=== PATIENT | female | born 1960 | race Caucasian/White ===

== ENCOUNTER → 2016-11-22 | Outpatient (CLI) | payer OTHER ==
[2016-11-22 09:31] LABS: EKG EKG PERFORMED
[2016-11-22 10:33] LABS: Basophils % (A) 1 %; CH 31.6; CHCM 35.2; Eosinophils # (A) 0.2 k/uL (0-0.7); Eosinophils % (A) 3 %; HCT 43.9 % (34.0-46.0); HDW 2.92; HGB 14.8 gm/dL (11.4-16.0); Luc # (Auto) 0.11; Luc % (Auto) 2; Lymphocytes # (A) 1.9 k/uL (1.0-4.8); Lymphocytes % (A) 34 %; MCH 30.4 pg (25.0-35.0); MCHC 33.6 g/dL (31.0-37.0); MCV 90.4 fL (80.0-100.0); Mean Platelet Volume 7.7; Monocytes # (A) 0.3 k/uL (0-1.0); Monocytes % (A) 5 %; Neutrophils # (A) 3.2 k/uL (1.3-7.7); Neutrophils % (A) 56 %; RBC 4.86 m/uL (3.80-5.40); RDW 13.9 % (11.5-15.5); WBC 5.7 k/uL (3.8-10.6); WBC (Perox) 5.71
[2016-11-22 10:53] LABS: Anion Gap 10 mmol/L; Blood Urea Nitrogen 17 mg/dL (7-17); Carbon Dioxide 29 mmol/L (22-30); Chloride 105 mmol/L (98-107); Glucose 107 mg/dL (74-99); Non-African American GFR(MDRD) >60 (>60 ml/min/1.73 sqM); Potassium 3.4 mmol/L (3.5-5.1); Sodium 144 mmol/L (137-145)
== END | disposition home or self-care (01) ==
LOC: LABPAT 08:49
PROVIDERS: ATTEND Obstetrics & Gynecology
DX: Z01.818 Encounter for other preprocedural examination (principal); I10 Essential (primary) hypertension; N81.10 Cystocele, unspecified; N81.2 Incomplete uterovaginal prolapse
CPT/HCPCS: 80051; 82565; 82947; 84520; 85025; 87077; 87086; 87186; 93005

== ENCOUNTER 2016-12-01 06:17 | Observation (INO) | payer OTHER ==
[2016-11-23 16:21] VITALS: BMI 20.3
--- NOTE | 2016-11-30 19:32 | HP ---
DATE OF ADMISSION: HISTORY: This is a 56-year-old 3, para 3 woman with symptomatic uterovaginal prolapse and incontinence. She complains of pelvic discomfort, a bulge in the vagina and incontinence. Her symptoms are accentuated by coughing, laughing and lifting. She was evaluated by Dr. Natanael De Los Santos who is recommending a mid urethral sling for her incontinence and she will have repair of her pelvic prolapse at the same time. ALLERGIES: CODEINE. MEDICATIONS: 1. Fluoxetine 20 mg daily. 2. Hydrochlorothiazide 25 mg daily. 3. Prempro 0.45/1.25 mg 1 p.o. daily. PAST MEDICAL HISTORY: Hypertension. PAST SURGICAL HISTORY: Cholecystectomy in 1979, wrist surgery in 2008. 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 No history of abnormal Pap smears. SOCIAL HISTORY: She is . Negative for tobacco, alcohol and drug use. FAMILY HISTORY: Significant for mother with breast cancer. REVIEW OF SYSTEMS: Positive for urinary incontinence and pelvic discomfort, otherwise negative for fevers, chills, weight gain, weight loss, nausea, vomiting, shortness of breath, chest pain, abdominal pain, rash or neurologic symptoms. PHYSICAL EXAMINATION: Blood pressure 110/70. Height 5 feet 7 inches, weight 173 pounds. In general, this is a pleasant female in no apparent distress. HEENT exam is unremarkable with no palpable lymphadenopathy or thyromegaly. The lungs are clear to auscultation bilaterally and the heart is regular rate and rhythm. The abdomen is soft and nontender with no rebound, no guarding and no flank pain. On pelvic examination, she has normal female external genitalia. On vaginal exam she has a grade 2 rectocele, grade 3 cystocele and grade 2 uterine prolapse. She has a hypermobile urethra. Rectal exam is within normal limits. Neurologically she is grossly intact. ASSESSMENT: This is a 56-year-old 3, para 3 woman with symptomatic pelvic prolapse incontinence. She has a grade 3 cystocele, grade 2 cervical uterine prolapse and grade 2 rectocele. She is scheduled to undergo total vaginal hysterectomy with anterior colporrhaphy and possible posterior colporrhaphy. Dr. De Los Santos will be performing a mid urethral sling procedure. This procedure, anticipated hospital course and recovery time have been reviewed with the patient in detail. Risks have also been reviewed. The risks include but are not limited to bleeding, transfusion, infection, laparotomy, damage to bowel, bladder, ureters and/or other pelvic or abdominal structures. There also risks in relation to the anesthesia as well as potential for DVT, PE, and/or . The patient understands these risks and agrees to proceed. She is scheduled for the above-named procedure on 12/01/2016.
[~2016-12-01 06:17] MED LIST: DEXAMETHASONE SOD PHOSPHATE 10 MG/ML 1 ML VIAL IV ONE; HYDROmorphone 1 MG/ML 1 ML SYRINGE IVP PRN; LEVOFLOXACIN 500MG-D5W PMX 500 MG in DEXTROSE/WATER 1 100ML.BAG IVPB ONE; LIDOCAINE 1% 20 ML VIAL (10MG/ML) FOR IV START INTRADERMA PRN; MIDAZOLAM 2 MG/2 ML VIAL IV PRN; ONDANSETRON 4 MG/2 ML VIAL IVP ONE; SCOPOLAMINE 1.5MG/72HR PATCH TRANSDERM ONE; ceFAZolin 2 GM in SODIUM CHLORIDE 0.9% 100 ML IVPB ONE
[2016-12-01] MEDS: LACTATED RINGERS 1,000 ML IV SCH ×2 (06:30→14:51)
[2016-12-01] MEDS ORDERED: VASOPRESSIN 20 UNIT/ML 1 ML VIAL SQ ONE ×2 (07:56→08:16)
[2016-12-01] MEDS ORDERED: NEOSTIGMINE 1 MG/ML 10 ML VIAL ONE (07:58)
[2016-12-01] MEDS ORDERED: MIDAZOLAM 2 MG/2 ML VIAL ONE (07:58)
[2016-12-01] MEDS ORDERED: fentaNYL (PF) 50 MCG/ML 2 ML AMP ONE (07:58)
[2016-12-01] MEDS ORDERED: LIDOCAINE 1% INJ 10MG/ML (20 ML MDV) ONE (07:58)
[2016-12-01] MEDS ORDERED: PROPOFOL 10 MG/ML 20 ML VIAL IV ONE (07:58)
[2016-12-01] MEDS ORDERED: ROCURONIUM BROMIDE 10 MG/ML 10 ML VIAL IV ONE (07:58)
[2016-12-01] MEDS ORDERED: ePHEDrine 50 MG/ML 1 ML AMP ONE (07:58)
[2016-12-01] MEDS ORDERED: GLYCOPYRROLATE 0.2 MG/ML 2 ML VIAL ONE (07:58)
[2016-12-01] MEDS ORDERED: SUCCINYLCHOLINE CHLORIDE 100 MG/5 ML SYR IV ONE (07:58)
[2016-12-01] MEDS ORDERED: BACITRACIN 500 UNIT/GM OINT 28.4 GM TUBE TOPICAL ONE (08:22)
[2016-12-01] MEDS ORDERED: GENTAMICIN 40 MG/ML 2 ML VIAL IRRIGATION ONE (09:11)
[2016-12-01] MEDS ORDERED: LACTATED RINGERS 1,000 ML IV ONE (09:35)
--- NOTE | 2016-12-01 09:51 | P.OP ---
Date of Procedure: 12/01/16 Preoperative Diagnosis: Third-degree cystocele, second-degree rectocele, second-degree uterine prolapse Urinary incontinence Postoperative Diagnosis: Same Procedure(s) Performed: Total vaginal hysterectomy and anterior colporrhaphy Implants: Anesthesia: MARYAodilia Surgeon: Juanis Turpin Adjustment Supervisor #1: Farzaneh Flores Estimated Blood Loss (ml): 100 IV fluids (ml): 700 Urine output (ml): 175 Pathology: other (Uterus) Condition: stable Disposition: PACU Indications for Procedure: Symptomatic pelvic prolapse and urinary incontinence Operative Findings: Second-degree cervical uterine prolapse, second-degree rectocele, third-degree cystocele Description of Procedure: After the patient and her family were met in the preoperative holding area and all questions were answered, she was taken to the operating room where anesthetic was administered without incident. She received a spinal anesthetic in the preoperative holding area. Appropriate timeout procedure was undertaken. She was then positioned, prepped and draped in the dorsal lithotomy position. The bladder was drained for approximately 100 mL of clear urine at the beginning of the procedure. Weighted speculum was placed in the vagina and the cervix was grasped with a single-tooth tenaculum. The vaginal mucosa was infused with dilute vasopressin solution circumferentially about the cervix. A circumferential incision was then made around the cervix in the vaginal mucosa. The vaginal mucosa was bluntly dissected away from the underlying cervical tissue anteriorly and posteriorly. The posterior peritoneum was identified and entered sharply. The peritoneum was tagged with a 2-0 Vicryl suture. The short weighted speculum was replaced with a long weighted speculum. The anterior vaginal Koza was further bluntly dissected away from the cervix and lower uterine segment. The uterosacral ligaments were clamped cut and suture ligated bilaterally. 2-0 Vicryl suture was utilized throughout unless otherwise indicated. The uterosacral pedicles were tagged. The bladder was further advanced anteriorly and the broad ligaments were clamped , cut and suture ligated bilaterally. The uterine vasculature was then clamped , cut and suture ligated bilaterally. The fundus of the uterus was noted to be well suspended. There was a small approximately 2 cm anterior fundal fibroid. The cornual pedicles were identified. The anterior peritoneum was entered sharply. The right cornual pedicle was then clamped and cut. It was doubly suture ligated. This freed exposure to the left cornea which was then clamped, cut and doubly suture ligated. Surgical sites were inspected. Bovie electrocautery was utilized along the vaginal cuff for hemostasis. The ovaries on the were not visualized in the surgical field. There are no gross pelvic pathology noted in the surgical field. The peritoneum was then closed in a pursestring fashion. The uterosacral ligaments were then reapproximated in the midline with the original tagged sutures. The vaginal cuff was then closed incorporating the uterosacral pedicles for suspension. This was done in an interrupted fashion. Attention was then turned to the anterior pair. The anterior portion of the vaginal cuff was left open and was delineated with Allis clamps. The anterior vaginal mucosa was then infused with dilute vasopressin solution. Metzenbaum scissors were utilized to undermine the anterior vaginal mucosa in the midline and this was incised in a vertical fashion. This was carried up to a level approximately 2 cm below the urethral meatus. The underlying vesicovaginal tissue was then bluntly from the vaginal mucosa. A Garner catheter was then placed. Clear urine was noted, approximately 25 mL's. The vesicovaginal fascia was then reapproximated in the midline using 2-0 Vicryl suture in an interrupted fashion with Loly plication stitches. This effectively reduced the cystocele. Excess vaginal mucosa was then trimmed. The inferior portion of the vaginal mucosa was then closed in a running fashion with 0 Vicryl suture. The case at this time was turned over to Dr. obrien in from urology to place the suburethral sling. At the conclusion of the sling placement I did finish closing the entire vaginal cuff to close over the surgical site. Packing was placed in the vagina. All counts reported to me as correct by the operating room staff.
[2016-12-01] MEDS ORDERED: SIMETHICONE 80 MG CHEWABLE PO PRN (11:38)
[2016-12-01] MEDS ORDERED: IBUPROFEN 600 MG TAB PO PRN (11:38)
[2016-12-01] MEDS ORDERED: METOCLOPRAMIDE 5 MG/ML 2 ML VIAL IVP PRN (11:38)
[2016-12-01] MEDS: KETOROLAC 30 MG/ML 1 ML VIAL IVP PRN (19:26)
[2016-12-01] MEDS: diphenhydrAMINE 50 MG/ML 1 ML VIAL IVP PRN (19:30)
--- NOTE | 2016-12-01 20:14 | OP ---
DATE OF SERVICE: 12/01/2016 SURGEON: JEFERSON MOHAMUD MD PREOPERATIVE DIAGNOSIS: Stress urinary incontinence. POSTOPERATIVE DIAGNOSIS: Stress urinary incontinence. OPERATION: Obtryx mid-urethral sling and cystoscopy. ANESTHESIA: General. INDICATIONS: The patient is a 56-year-old female with a history of urine leakage with activity. Patient has noted increasing leakage over the last year. On examination, patient has a hypermobile bladder neck and a moderate-sized cystocele. Patient's symptoms are consistent with stress urinary incontinence. She has seen Dr. Turpin, who plans vaginal hysterectomy and anterior repair for her pelvic prolapse. Patient will undergo a [employer] Obtryx mid-urethral sling under the same anesthetic. PROCEDURE: The patient was taken to the operating suite, where adequate general anesthesia via orotracheal intubation was instituted. The patient was placed in the dorsal lithotomy position. Pneumatic compression stockings were applied to the patient's lower legs. A Betadine vaginal douche was performed. The perineum was prepped with Betadine soap, painted with Betadine solution, and draped in sterile fashion. Dr. Turpin initially performed a vaginal hysterectomy and anterior colporrhaphy. The midline vaginal incision was then extended anteriorly to the mid urethra. The vaginal mucosa was dissected away from the underlying urethral and periurethral tissue laterally so that a finger could be passed through the vaginal incision up to the region of the obturator foramen on each side. One-centimeter skin incisions were then made in the right and left groins at a level adjacent to the clitoris. A curved introducer was then passed through the left groin incision, through the obturator foramen and then out lateral to the mid urethra with a finger placed through the vaginal incision. An identical procedure was then performed on the right side. The sling was attached to the introducers on each side and pulled up into the groin regions. Patient's Garner catheter was removed. Cystoscopy was performed using the 17 Swedish sheath and 70-degree lens. Both ureteral orifices were of normal location and configuration and effluxed clear urine. The bladder was free of tumor, foreign body and perforation. The urethra was unremarkable. The cystoscope was withdrawn and the Garner catheter was reinserted. A Loly clamp was then placed between the graft and the mid urethra to act as a spacer and the graft was pulled up to the clamp. The plastic sheathing was removed. The position of the graft was inspected to ensure no upward traction. The midline vaginal mucosa was then closed using running 2-0 Vicryl placed in a locked fashion by Dr. Turpin. Bacitracin-impregnated gauze was then placed into the vagina for packing. The groin incisions were then closed using Mastisol and Steri-Strips. The patient tolerated the procedure well and left the operating room awake and in satisfactory condition. Blood loss during the entire procedure was less than 100 mL. Final sponge, needle and instrument counts were reported as correct. The patient's catheter will be removed in the morning and she will be discharged later in the day, provided that her post-void residual is low. POLLY
[2016-12-01] MEDS: SENNOSIDES-DOCUSATE SODIUM 1 EACH TAB PO SCH (20:53)
[2016-12-02] MEDS: KETOROLAC 30 MG/ML 1 ML VIAL IVP PRN ×2 (02:27→08:22)
[2016-12-02] MEDS: diphenhydrAMINE 50 MG/ML 1 ML VIAL IVP PRN (02:29)
--- NOTE | 2016-12-02 08:20 | P.DS ---
Providers Date of admission: 12/02/16 04:03 Expected date of discharge: 12/02/16 Attending physician: Juanis Turpin Primary care physician: Stated None - Discharge Diagnosis(es) (1) Cystocele or rectocele with uterine prolapse Current Visit: Yes Status: Acute (2) Incontinence of urine Current Visit: Yes Status: Acute Hospital Course: This is a 56 year old woman who is admitted for surgical repair of symptomatic pelvic prolapse including third-degree cystocele, second-degree cervical uterine prolapse and second-degree rectocele. She was admitted on 12/01/2016 and underwent an uncomplicated total vaginal hysterectomy with anterior colporrhaphy and mid urethral sling placement. Please see the operative report for details. Procedure was done under spinal plus general anesthetic. Her postoperative course was unremarkable. By the evening of postoperative day 0 she was ambulating without difficulty and tolerating a general diet. By the morning of postoperative day #1 her vaginal packing and Garner catheter removed. She had no active vaginal bleeding. She was able to void spontaneously with minimal postvoid residuals. Her pain was well-controlled with oral pain medications and she was tolerating a general diet. Postoperative blood counts are pending at the time of this dictation. Her physical exam is benign. Her abdomen is soft with no rebound, no guarding, and no flank pain. She has minimal vaginal bleeding on pelvic exam. She was therefore discharged home on postoperative day #1 pending the evaluation by the urology team and normal postop blood counts. Procedures: Total vaginal hysterectomy with anterior colporrhaphy and mid urethral sling placement. Patient Condition at Discharge: Good Plan - Discharge Summary New Discharge Prescriptions: New Ibuprofen 800 mg PO Q8HR PRN #30 tablet PRN Reason: Pain Sennosides-Docusate Sodium [Senokot-S] 2 each PO BID tab No Action Hydrochlorothiazide [Hydrodiuril] 25 mg PO DAILY Cetirizine HCl [Zyrtec] 10 mg PO DAILY Discharge Medication List Cetirizine HCl [Zyrtec] 10 mg PO DAILY 11/23/16 [History] Hydrochlorothiazide [Hydrodiuril] 25 mg PO DAILY 11/23/16 [History] Ibuprofen 800 mg PO Q8HR PRN #30 tablet 12/02/16 [Rx] Sennosides-Docusate Sodium [Senokot-S] 2 each PO BID tab 12/02/16 [Rx] Follow up Appointment(s)/Referral(s): Juanis Turpin MD [STAFF PHYSICIAN] - 2 Weeks Natanael De Los Santos MD [STAFF PHYSICIAN] - 3 Days Activity/Diet/Wound Care/Special Instructions: Call the office with any concerning signs or symptoms including fever greater than 100.5, heavy vaginal bleeding, foul vaginal discharge, severe abdominal pain, difficulty or inability to urinate, redness or swelling of the lower extremities. No heavy lifting greater than 10 pounds, no driving for 2 weeks. Nothing in the vagina, no intercourse for 6 weeks. Discharge Disposition: HOME SELF-CARE
[2016-12-02] MEDS: SENNOSIDES-DOCUSATE SODIUM 1 EACH TAB PO SCH (08:32)
[2016-12-02] MEDS ORDERED: HYDROCHLOROTHIAZIDE 25 MG TAB PO SCH (09:00)
[2016-12-02] MEDS ORDERED: ACETAMINOPHEN TAB 325 MG TAB PO PRN (09:54)
--- NOTE | 2016-12-02 10:24 | P.PN ---
Progress Note - Text Date:12/02 Time:956am Patient is status post vaginal hystrectomy. Patient seen this morning with VAS score of 0. c/o of pruritus and treated with benadryl, no c/o nausea/vomiting, comfortable and doing well.
[2016-12-02 10:44] LABS: Basophils % (A) 0 %; CH 31.4; CHCM 35.3; Eosinophils % (A) 0 %; HCT 36.4 % (34.0-46.0); HDW 2.78; HGB 12.7 gm/dL (11.4-16.0); Luc # (Auto) 0.19; Luc % (Auto) 2; Lymphocytes # (A) 2.3 k/uL (1.0-4.8); Lymphocytes % (A) 18 %; MCH 31.2 pg (25.0-35.0); MCHC 34.8 g/dL (31.0-37.0); MCV 89.6 fL (80.0-100.0); Mean Platelet Volume 7.8; Monocytes # (A) 0.6 k/uL (0-1.0); Monocytes % (A) 5 %; Neutrophils # (A) 9.2 k/uL (1.3-7.7); Neutrophils % (A) 75 %; RBC 4.06 m/uL (3.80-5.40); RDW 13.5 % (11.5-15.5); WBC 12.3 k/uL (3.8-10.6); WBC (Perox) 13.36
[2016-12-02 12:05] VITALS: BP 115/67; PULSE 70; RESP 16; TEMP 97.5
--- NOTE | 2016-12-02 12:17 | P.PN ---
Progress Note - Text PID #1, s/p Obtryx sling. The Garner catheter was removed this morning, and she is emptying her bladder well. She states that she voided without difficulty. The incisions are dry and intact. She is afebrile with stable vital signs. She is to be discharged home today and follow up with Dr. De Los Santos in the upcoming week.
== END 2016-12-02 12:30 | disposition home or self-care (01) ==
LOC: OR 06:17 → 6PED 09:50 → OR 12-02 04:02 → 6PED 12-02 04:03
PROVIDERS: ADMIT Obstetrics & Gynecology; ATTEND Obstetrics & Gynecology
DX: N81.2 Incomplete uterovaginal prolapse (principal); N39.3 Stress incontinence (female) (male); R05 Cough; I10 Essential (primary) hypertension; Z90.49 Acquired absence of other specified parts of digestive tract; Z79.899 Other long term (current) drug therapy; Z80.3 Family history of malignant neoplasm of breast
CPT/HCPCS: 86900; 86901; 84132; 85025; 86850; 88342; 88307; 58260; 57240; G0378; C1771; J2250; J1200 ×2; J1580; J1100; J2710; J2405; J0694; J2001; J3010; J1885 ×2; J0330; J2704

== ENCOUNTER → 2017-01-26 | Outpatient (CLI) | payer OTHER ==
--- NOTE | 2017-01-30 09:03 | MM ---
Reason for exam: screening (asymptomatic). Last mammogram was performed 1 year and 5 months ago. History: Patient is postmenopausal. Family history of breast cancer in mother. Took hormonal contraceptives beginning at age 48. Taking estrogen. Taking progesterone. Physical Findings: A clinical breast exam by your physician is recommended on an annual basis and results should be correlated with mammographic findings. MG 3D Screening Mammo W/Cad Bilateral CC and MLO view(s) were taken. Prior study comparison: September 03, 2015, bilateral MG 3d screening mammo w/cad. October 06, 2009, right breast mammogram dig work up. Finding: Architectural distortion in the upper outer quadrant of the right breast. ASSESSMENT: Incomplete: need additional imaging evaluation, BI-RAD 0 RECOMMENDATION: Special view mammogram of the right breast. If lesion persists on supplemental views, image directed ultrasound is recommended. [facility] will attempt to contact patient to return for supplemental views and ultrasound if indicated.
== END | disposition home or self-care (01) ==
LOC: RADMAMWWP 07:46
PROVIDERS: ATTEND Obstetrics & Gynecology
DX: Z12.31 Encounter for screening mammogram for malignant neoplasm of breast (principal)
CPT/HCPCS: 77063; G0202

== ENCOUNTER → 2017-02-05 | Outpatient (CLI) | payer OTHER ==
--- NOTE | 2017-02-05 08:34 | MM ---
Reason for exam: additional evaluation requested from abnormal screening. Last mammogram was performed less than 1 month ago. History: Patient is postmenopausal. Family history of breast cancer in mother. Took hormonal contraceptives beginning at age 48. Taking estrogen. Taking progesterone. Physical Findings: Nurse did not find any significant physical abnormalities on exam. MG 3D Work Up W/Cad RT Spot compression CC, spot compression MLO, spot compression XCCL, and LM view(s) were taken of the right breast. Prior study comparison: January 26, 2017, bilateral MG 3d screening mammo w/cad. September 03, 2015, bilateral MG 3d screening mammo w/cad. The breast tissue is heterogeneously dense. This may lower the sensitivity of mammography. The previously described abnormality does not persist on additional views. These results were verbally communicated with the patient and result sheet given to the patient on 02/05/17. ASSESSMENT: Negative, BI-RAD 1 RECOMMENDATION: Return to routine screening mammogram schedule for both breasts.
== END | disposition home or self-care (01) ==
LOC: RADMAMWWP 07:31
PROVIDERS: ATTEND Obstetrics & Gynecology
DX: R92.8 Other abnormal and inconclusive findings on diagnostic imaging of breast (principal)
CPT/HCPCS: G0206; G0279

== ENCOUNTER 2017-08-07 07:57 | Emergency (ER) | payer OTHER ==
[2017-08-07 08:03] VITALS: BP 143/79; PULSE 70; RESP 18; TEMP 97
--- NOTE | 2017-08-07 08:37 | ED ---
General Adult HPI - General Chief complaint: Fall Stated complaint: Fell/rib pain Time Seen by Provider: 08/07/17 08:14 Source: patient, RN notes reviewed Mode of arrival: ambulatory Limitations: no limitations - History of Present Illness Initial comments: 56 yo female presents to the ER with cc of right sided rib pain after a slip and fall this morning. Patient states that she slipped on some ice and landed onto her right side of her ribs. Patient states she has pain to touch she has pain to deep breath. Patient denies any abdominal pain. She states nothing else was injured. She denied her head. There is no lightheadedness or dizziness no chest pain prior to the fall. Patient is otherwise feeling well. Patient denies any recent fever, chills, shortness of breath, back pain, abdominal pain, nausea vomiting, numbness or tingling, dysuria or hematuria, constipation or diarrhea, headaches or visual changes, or any other current symptoms. - Related Data Home Medications Medication Instructions Recorded Confirmed Hydrochlorothiazide [Hydrodiuril] 25 mg PO DAILY 11/23/16 08/07/17 Estradiol [Estrace] 1.5 mg PO HS 08/07/17 08/07/17 Joint Health 1 tab PO DAILY 08/07/17 08/07/17 Progesterone, Micronized 100 mg PO HS 08/07/17 08/07/17 [Progesterone] Previous Rx's Medication Instructions Recorded Hydrocodone/Acetaminophen [[place] 1 each PO Q6HR PRN #10 tab 08/07/17 5-325] Ibuprofen [Motrin] 600 mg PO Q6HR PRN #20 tab 08/07/17 Allergies Allergy/AdvReac Type Severity Reaction Status Date / Time codeine AdvReac Abdominal Verified 08/07/17 08:19 Pain Review of Systems ROS Statement: Those systems with pertinent positive or pertinent negative responses have been documented in the HPI. ROS Other: All systems not noted in ROS Statement are negative. Past Medical History Past Medical History: Hypertension History of Any Multi-Drug Resistant Organisms: None Reported Past Surgical History: Hysterectomy, Orthopedic Surgery Additional Past Surgical History / Comment(s): left wrist surgery Past Psychological History: No Psychological Hx Reported Smoking Status: Never smoker Past Alcohol Use History: None Reported Past Drug Use History: None Reported General Exam Limitations: no limitations General appearance: alert, in no apparent distress ENT exam: Present: normal exam, mucous membranes moist Neck exam: Present: normal inspection. Absent: tenderness, meningismus, lymphadenopathy Respiratory exam: Present: normal lung sounds bilaterally, chest wall tenderness (Right lateral). Absent: respiratory distress, wheezes, rales, rhonchi, stridor Cardiovascular Exam: Present: regular rate, normal rhythm, normal heart sounds. Absent: systolic murmur, diastolic murmur, rubs, gallop, clicks GI/Abdominal exam: Present: soft, normal bowel sounds. Absent: distended, tenderness, guarding, rebound, rigid Neurological exam: Present: alert, oriented X3 Psychiatric exam: Present: normal affect, normal mood Skin exam: Present: warm, dry, intact, normal color. Absent: rash Course Vital Signs 08/07/17 08:00 Temperature 97.0 F L Pulse Rate 70 Respiratory 18 Rate Blood Pressure 143/79 O2 Sat by Pulse 99 Oximetry Medical Decision Making - Medical Decision Making 56-year-old female presents emergency department chief complaint of right-sided rib pain. At this time x-rays reviewed that does not show any acute fracture. At this time we discussed we will give her pain medication. We discussed continued care of the ribs for a rib contusion. We did discuss repeat x-ray in one week if symptoms persist. We did discuss return parameters and follow-up and all questions. The patient and family stated they understood and they are in agreement with this plan. All questions have been answered. They will be discharged. - Radiology Data Radiology results: report reviewed, image reviewed Disposition Clinical Impression: Fall, Contusion of rib on right side Disposition: HOME SELF-CARE Condition: Stable Instructions: Rib Contusion (ED) Additional Instructions: Please use medication as discussed. Please follow up with family doctor if symptoms have not improved over the next two days. Please return to the emergency room if your symptoms increase or worsen or for any other concerns. Prescriptions: Hydrocodone/Acetaminophen [[place] 5-325] 1 each PO Q6HR PRN #10 tab PRN Reason: Pain Ibuprofen [Motrin] 600 mg PO Q6HR PRN #20 tab PRN Reason: Pain Referrals: Pedro Pablo Marcial DO [Primary Care Provider] - 1-2 days Time of Disposition: 09:08
--- NOTE | 2017-08-07 09:03 | XR ---
EXAMINATION TYPE: XR ribs RT w pa chest xray DATE OF EXAM: 08/07/2017 COMPARISON: NONE HISTORY: Pain TECHNIQUE: Single view of the chest 4 views of the ribs are submitted. FINDINGS: The lungs are clear. No Evidence for pneumothorax. No evidence for focal contusion. Medi astinal structures are midline. Evaluation of the ribs fails to demonstrate evidence for displaced r ib fracture or secondary sign of rib fracture. IMPRESSION: Negative study
== END 2017-08-07 09:22 | disposition home or self-care (01) ==
LOC: EC 07:57
DX: S20.211A Contusion of right front wall of thorax, initial encounter (principal); I10 Essential (primary) hypertension; Z88.5 Allergy status to narcotic agent; Z79.890 Hormone replacement therapy; Z79.899 Other long term (current) drug therapy; W00.0XXA Fall on same level due to ice and snow, initial encounter
CPT/HCPCS: 99283

== ENCOUNTER → 2018-08-30 | Outpatient (CLI) | payer OTHER ==
--- NOTE | 2018-08-30 14:40 | XR ---
EXAMINATION TYPE: XR Hip RT and AP Pelvis DATE OF EXAM: 08/30/2018 COMPARISON: NONE HISTORY: Pain TECHNIQUE: A single AP view of the pelvis is obtained. Two views of the right hip are obtained. FINDINGS: There is hypertrophic change lower lumbar spine. Hypertrophic change of the acetabulum rolando aterally with arthropathy. No acute fracture. Sclerotic density involving the femoral neck likely rel ated to bone island. IMPRESSION: 1. 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
== END ==
LOC: RADXRMAIN 13:57
PROVIDERS: ATTEND Family Medicine
DX: S30.0XXA Contusion of lower back and pelvis, initial encounter (principal); M16.11 Unilateral primary osteoarthritis, right hip
CPT/HCPCS: 73502

== ENCOUNTER 2018-12-21 14:14 | Emergency (ER) | payer OTHER ==
--- NOTE | 2018-12-21 14:56 | ED ---
Extremity Problem HPI - General Chief complaint: Extremity Problem,Nontraumatic Stated complaint: Left Foot Swelling Time Seen by Provider: 12/21/18 14:28 Source: patient Mode of arrival: ambulatory Limitations: no limitations - History of Present Illness Initial comments: Patient is a 58-year-old female presenting to the ER with complaints of lower left leg and ankle swelling on and off 3 days. Patient states she works on her feet most of the day and when she came home she had significant swelling of her left lower extremity. Patient denies pain in her left ankle and foot. Patient states she does have mild pain when walking on the front of her tibia. Patient denies any kind of injury or trauma to her left leg. Patient denies recent travel, smoking, control use, history of blood clots. Patient states he went to urgent care today for this issue and they sent her to the ER to get an ultrasound. Patient has no other complaints today. Patient states past medical history: Hypertension and depression. Patient has been on medication for these for over 3 years, no recent changes. - Related Data Home Medications Medication Instructions Recorded Confirmed Hydrochlorothiazide [Hydrodiuril] 25 mg PO DAILY 11/23/16 08/07/17 Estradiol [Estrace] 1.5 mg PO HS 08/07/17 08/07/17 Joint Health 1 tab PO DAILY 08/07/17 08/07/17 Progesterone, Micronized 100 mg PO HS 08/07/17 08/07/17 [Progesterone] Previous Rx's Medication Instructions Recorded Hydrocodone/Acetaminophen [Energy 1 each PO Q6HR PRN #10 tab 08/07/17 5-325] Ibuprofen [Motrin] 600 mg PO Q6HR PRN #20 tab 08/07/17 Allergies Allergy/AdvReac Type Severity Reaction Status Date / Time codeine AdvReac Abdominal Verified 12/21/18 14:27 Pain Review of Systems ROS Statement: Those systems with pertinent positive or pertinent negative responses have been documented in the HPI. ROS Other: All systems not noted in ROS Statement are negative. Past Medical History Past Medical History: Hypertension History of Any Multi-Drug Resistant Organisms: None Reported Past Surgical History: Hysterectomy, Orthopedic Surgery Additional Past Surgical History / Comment(s): left wrist surgery Past Psychological History: No Psychological Hx Reported Smoking Status: Never smoker Past Alcohol Use History: None Reported Past Drug Use History: None Reported General Exam - General Exam Comments Initial Comments: GENERAL: Well-appearing, well-nourished and in no acute distress. HEAD: Atraumatic, normocephalic. EYES: Pupils equal round and reactive to light, extraocular movements intact, sclera anicteric, conjunctiva are normal. ENT: TMs normal, nares patent, oropharynx clear without exudates. Moist mucous membranes. NECK: Normal range of motion, supple without lymphadenopathy or JVD. LUNGS: Breath sounds clear to auscultation bilaterally and equal. No wheezes rales or rhonchi. HEART: Regular rate and rhythm without murmurs, rubs or gallops. ABDOMEN: Soft, nontender, normoactive bowel sounds. No guarding, no rebound. No masses appreciated. : Deferred EXTREMITIES: No tenderness to palpation of the left lower leg, ankle, foot. No pain with calf palpation and compression. No erythema. Mild swelling present on the lateral malleolus area. NEUROLOGICAL: Cranial nerves II through XII grossly intact. Normal speech, normal gait. PSYCH: Normal mood, normal affect. SKIN: Warm, Dry, normal turgor, no rashes or lesions noted. Limitations: no limitations Course Vital Signs 12/21/18 12/21/18 12/21/18 14:25 15:17 17:06 Temperature 98.5 F 98 F Pulse Rate 62 98 66 Respiratory 18 16 16 Rate Blood Pressure 164/79 153/85 127/81 O2 Sat by Pulse 99 98 99 Oximetry Medical Decision Making - Medical Decision Making Patient is a 58-year-old female complaining of left lower leg swelling after she cannot her feet for the past 3 days. Patient denies any trauma or injury to her left lower leg, ankle, foot. Patient does not have any risk factors for blood clot including no recent travel, no smoking, no control use, no change in medications. On exam patient has very mild swelling of the left lateral malleolus. No tenderness to palpation of the left lower leg, ankle, foot, or calf. Ultrasound of the left lower extremity was performed, no acute DVTs. Patient counseled on elevation and compression and to follow up with PCP. Case discussed with Dr. Ivan. Disposition Clinical Impression: Localized swelling of left lower extremity Disposition: HOME SELF-CARE Condition: Stable Instructions (If sedation given, give patient instructions): Leg Edema (ED) Additional Instructions: Please return to the Emergency Department if symptoms worsen or any other concerns. Follow-up with primary care. Is patient prescribed a controlled substance at d/c from ED?: No Referrals: Pedro Pablo Marcial DO [Primary Care Provider] - 1-2 days
[2018-12-21 15:21] VITALS: RESP 16; TEMP 98
--- NOTE | 2018-12-21 15:53 | US ---
EXAMINATION TYPE: US venous doppler duplex LE LT DATE OF EXAM: 12/21/2018 3:45 PM COMPARISON: NONE CLINICAL HISTORY: swelling. ankle swelling that comes and goes. No injury. No hx of DVT. No blood thinners. No redness. SIDE PERFORMED: Left TECHNIQUE: The lower extremity deep venous system is examined utilizing real time linear array sonog forrest with graded compression, doppler sonography and color-flow sonography. VESSELS IMAGED: External Iliac Vein (EIV) Common Femoral Vein Deep Femoral Vein Greater Saphenous Vein * Femoral Vein Popliteal Vein Small Saphenous Vein * Proximal Calf Veins (* superficial vessels) Grayscale, color doppler, spectral doppler imaging performed of the deep veins of the left lower extr emity. There is normal flow, compressibility, vascular waveforms. Left Leg: Negative for DVT IMPRESSION: No sonographic evidence of deep venous thrombosis within the left lower extremity.
[2018-12-21 17:07] VITALS: BP 127/81; PULSE 66
== END 2018-12-21 17:06 | disposition home or self-care (01) ==
LOC: EC 14:14
DX: R22.42 Localized swelling, mass and lump, left lower limb (principal); I10 Essential (primary) hypertension; Z79.899 Other long term (current) drug therapy; Z88.5 Allergy status to narcotic agent
CPT/HCPCS: 99283

== ENCOUNTER → 2020-12-01 | Outpatient (CLI) | payer OTHER ==
--- NOTE | 2020-12-01 14:15 | MM ---
Reason for exam: screening (asymptomatic). Last mammogram was performed 3 years and 10 months ago. History: Patient is postmenopausal. Family history of breast cancer in mother. Took hormonal contraceptives beginning at age 48. Taking estrogen. Taking progesterone. Physical Findings: A clinical breast exam by your physician is recommended on an annual basis and results should be correlated with mammographic findings. MG 3D Screening Mammo W/Cad Bilateral CC and MLO view(s) were taken. Prior study comparison: February 05, 2017, right breast MG 3d work up w/cad RT. January 26, 2017, bilateral MG 3d screening mammo w/cad. The breast tissue is heterogeneously dense. This may lower the sensitivity of mammography. There are benign appearing round vascular calcifications bilaterally. There is no discrete abnormality. ASSESSMENT: Benign, BI-RAD 2 RECOMMENDATION: Routine screening mammogram of both breasts in 1 year.
== END | disposition home or self-care (01) ==
LOC: RADMAMWWP 08:25
PROVIDERS: ATTEND Family Medicine
DX: Z12.31 Encounter for screening mammogram for malignant neoplasm of breast (principal); Z79.818 Long term (current) use of other agents affecting estrogen receptors and estrogen levels; Z80.3 Family history of malignant neoplasm of breast
CPT/HCPCS: 77063; 77067

== ENCOUNTER → 2023-07-09 | Outpatient (CLI) | payer OTHER ==
--- NOTE | 2023-07-10 09:55 | CA ---
Transthoracic Echo Report Name: Cee Wei Age: 62 Gender: F : 1960 Exam Date: 07/09/2023 13:51 Exam Location: [facility] Ht (in): 66 Wt (lb): 135 Ordering Physician: Jarrod Mandujano DO Attending/Referring Phys: Jarrod Mandujano DO [employer] Juanis Moffett RDCS Procedure CPT: Indications: R55 SYNCOPE AND COLLAPSE Cardiac Hx: Technical Quality: Fair Contrast 1: Total Dose (mL): Contrast 2: Total Dose (mL): MEASUREMENTS (Male / Female) Normal Values 2D ECHO LV Diastolic Diameter PLAX 4.3 cm 4.2 - 5.9 / 3.9 - 5.3 cm LV Systolic Diameter PLAX 3.0 cm IVS Diastolic Thickness 1.6 cm 0.6 - 1.0 / 0.6 - 0.9 cm LVPW Diastolic Thickness 1.4 cm 0.6 - 1.0 / 0.6 - 0.9 cm LV Relative Wall Thickness 0.7 RV Internal Dim ED PLAX 3.6 cm LA Volume 76.3 cm??? 18 - 58 / 22 - 52 cm??? LA Volume Index 45.2 cm???/m??? 16 - 28 cm???/m??? M-MODE Aortic Root Diameter MM 2.8 cm LA Systolic Diameter MM 4.9 cm LA Ao Ratio MM 1.7 AV Cusp Separation MM 1.7 cm DOPPLER AV Peak Velocity 170.0 cm/s AV Peak Gradient 11.6 mmHg AV Mean Velocity 120.1 cm/s AV Mean Gradient 6.4 mmHg AV Velocity Time Integral 36.6 cm LVOT Peak Velocity 134.2 cm/s LVOT Peak Gradient 7.2 mmHg LVOT Velocity Time Integral 29.9 cm MV Area PHT 3.5 cm??? Mitral E Point Velocity 81.7 cm/s Mitral A Point Velocity 112.6 cm/s Mitral E to A Ratio 0.7 MV Deceleration Time 218.1 ms MV E' Velocity 4.1 cm/s Mitral E to MV E' Ratio 19.9 TR Peak Velocity 237.2 cm/s TR Peak Gradient 22.5 mmHg Right Ventricular Systolic Press 25.7 mmHg FINDINGS Left Ventricle Moderately increased left ventricular wall thickness. Left ventricular cavity size normal. Normal left ventricular systolic function with no obvious regional wall motion abnormalities. Left ventricular ejection fraction is estimated at 55-60 %. Right Ventricle Mild right ventricular dilatation. Right ventricular systolic pressure within normal limits. Right Atrium Normal right atrial size. Left Atrium Severely increased left atrial volume. Mildly increased left atrial area. Mitral Valve Structurally normal mitral valve. Mild mitral annular calcification. Mild-to- moderate mitral regurgitation. Aortic Valve Trileaflet aortic valve. No aortic valve stenosis or regurgitation. Tricuspid Valve Structurally normal tricuspid valve. Mild tricuspid regurgitation. Pulmonic Valve Structurally normal pulmonic valve. Pericardium No pericardial effusion. Aorta Normal size aortic root and proximal ascending aorta. CONCLUSIONS Preserved milliseconds systolic function with mild RV enlargement Previewed by: Dr. Leo Solorzano MD (Electronically Signed) Final Date: 10 July 2023 09:54
== END | disposition home or self-care (01) ==
LOC: RADECHMAIN 13:34
PROVIDERS: ATTEND Family Medicine
DX: I51.7 Cardiomegaly (principal); R55 Syncope and collapse
CPT/HCPCS: 93306

== ENCOUNTER 2023-07-17 08:39 | Day surgery (SDC) | payer OTHER ==
[2023-07-16 08:31] VITALS: BMI 22.2
[~2023-07-17 08:39] MED LIST changes: -DEXAMETHASONE SOD PHOSPHATE 10 MG/ML 1 ML VIAL IV ONE; -HYDROmorphone 1 MG/ML 1 ML SYRINGE IVP PRN; +LACTATED RINGERS 1,000 ML IV SCH; -LEVOFLOXACIN 500MG-D5W PMX 500 MG in DEXTROSE/WATER 1 100ML.BAG IVPB ONE; +LIDOCAINE 1% (10MG/ML) FOR IV START INTRADERMA PRN; -LIDOCAINE 1% 20 ML VIAL (10MG/ML) FOR IV START INTRADERMA PRN; -MIDAZOLAM 2 MG/2 ML VIAL IV PRN; -ONDANSETRON 4 MG/2 ML VIAL IVP ONE; +ONDANSETRON 4 MG/2 ML VIAL IVP PRN; -SCOPOLAMINE 1.5MG/72HR PATCH TRANSDERM ONE; -ceFAZolin 2 GM in SODIUM CHLORIDE 0.9% 100 ML IVPB ONE
[2023-07-17 09:33] VITALS: TEMP 98
[2023-07-17] MEDS ORDERED: LIDOCAINE 1% INJ 10MG/ML (20 ML MDV) ONE (09:41)
[2023-07-17] MEDS ORDERED: PROPOFOL 10 MG/ML 20 ML VIAL IV ONE (09:41)
--- NOTE | 2023-07-17 09:58 | P.PCN ---
Date of Procedure: 07/17/23 Procedure(s) Performed: BRIEF HISTORY: Patient is a 62-year-old, pleasant, White female scheduled for an upper endoscopy as a part of evaluation of solid food dysphagia for the last 1 month duration. PROCEDURE PERFORMED: Esophagogastroduodenoscopy with dilation. PREOPERATIVE DIAGNOSIS: Solid food dysphagia of 1 month duration IV sedation per anesthesia. PROCEDURE: After informed consent was obtained, the patient was brought into the endoscopy unit. IV sedation was administered by Anesthesia under continuous monitoring. Initially the Olympus GIF-140 video endoscope was inserted into the mouth. Esophagus intubated without any difficulty. It was gradually advanced into the stomach and duodenum and carefully examined. The bulb and the second part of the duodenum appeared normal. The scope at this time was withdrawn to the stomach, adequately insufflated with air, and upon careful examination, mucosa of the antrum, body, cardia and the fundus appeared normal. The scope was then withdrawn into the esophagus. The GE junction was located at 39 cm from the incisors. mall hiatal hernia noted. There was a distal esophageal stricture identified that was dilated using 15-16.5 mm TTS balloon in a sequential fashion for 30 seconds. Following the dilation there was a brisk oozing identified at the site of dilation. There was circumferential erythema the GE junction consistent with LA grade a reflux esophagitis. The rest of the esophagus appeared normal. There were no erosions or ulcerations seen and the patient tolerated the procedure well. IMPRESSION: 1. Distal esophageal stricture status post balloon dilation using 15 and 16.5 mm TTS balloon as described above. 2. Small Hiatal hernia and LA grade A reflux esophagitis. RECOMMENDATIONS: The findings of this examination were discussed with the patient as well as her family. She was advised to be on a clear liquid diet for 2 hours. Recommend starting on omeprazole 20 mg daily for reflux esophagitis. Follow up in office in 3 months..
[2023-07-17 10:48] VITALS: BP 169/78; PULSE 52; RESP 14
== END 2023-07-17 10:30 | disposition home or self-care (01) ==
LOC: ORWHC2ENDO 08:39
PROVIDERS: ATTEND Internal Medicine Gastroenterology
DX: K21.00 Gastro-esophageal reflux disease with esophagitis, without bleeding (principal); K22.2 Esophageal obstruction; K44.9 Diaphragmatic hernia without obstruction or gangrene; I25.2 Old myocardial infarction; Z90.49 Acquired absence of other specified parts of digestive tract; Z98.890 Other specified postprocedural states; Z79.899 Other long term (current) drug therapy
CPT/HCPCS: 43249; J2001; J2704; C1726